=== PATIENT | female | born 1950 | race Caucasian/White ===

== ENCOUNTER 2017-12-08 18:23 | Emergency (ER) | payer OTHER ==
--- NOTE | 2017-12-08 19:26 | C.PDOC ---
History Of Present Illness 67 year old female presents to ED intoxicated looking for a place to stay. Patient reports she has been drinking today. Patient denies SI/HI, hallucinations, fever, CP, SOB. Time Seen by Provider: 12/08/17 19:15 Chief Complaint (Nursing): Substance Abuse History Per: Patient History/Exam Limitations: intoxication Onset/Duration Of Symptoms: Hrs Current Symptoms Are (Timing): Still Present Suicide/Self Injury Attempted (Context): None Modifying Factor(s): Alcohol Associated Symptoms: denies: Depression, Suicidal Thoughts, Suicidal Plan Recent travel outside of the [place] States: No Additional History Per: Patient Past Medical History Reviewed: Historical Data, Nursing Documentation, Vital Signs Vital Signs: Last Vital Signs Temp 98 F 12/09/17 01:53 Pulse 78 12/09/17 01:53 Resp 18 12/09/17 01:53 BP 128/84 12/09/17 01:53 Pulse Ox 98 12/09/17 01:53 - Medical History PMH: Anxiety, Depression, Diabetes, HTN Denies: Hepatitis, HIV, Seizures, Sexually Transmitted Disease Surgical History: No Surg Hx - [facility] Procedures PHYSICAL THERAPY NEC (04/01/14) Family History: States: Unknown Family Hx - Social History Hx Alcohol Use: Yes Hx Substance Use: No Review Of Systems Constitutional: Negative for: Fever, Chills Cardiovascular: Negative for: Chest Pain Respiratory: Negative for: Shortness of Breath Gastrointestinal: Negative for: Nausea, Vomiting Psych: Negative for: Depression, Suicidal ideation Physical Exam - Physical Exam Appears: Non-toxic, No Acute Distress Skin: Warm, Dry Head: Normacephalic Eye(s): bilateral: Normal Inspection Neck: Supple Chest: Symmetrical Cardiovascular: Rhythm Regular Respiratory: No Rales, No Rhonchi, No Wheezing Gastrointestinal/Abdominal: Soft, No Tenderness, No Guarding, No Rebound Back: Normal Inspection Extremity: Bilateral: Atraumatic, Normal Color And Temperature, Normal ROM Neurological/Psych: Oriented x3 Gait: Unsteady (due to alcohol intoxication) ED Course And Treatment O2 Sat by Pulse Oximetry: 98 (ON RA) Pulse Ox Interpretation: Normal Reevaluation Time: 05:18 Reassessment Condition: Improved Disposition Counseled Patient/Family Regarding: Studies Performed, Diagnosis - Disposition Referrals: [facility] [Outside] Disposition: HOME/ ROUTINE Disposition Time: 19:26 Condition: FAIR Instructions: Alcohol Abuse and Alcoholism (DC) Forms: [facility] ([place]) Print Language: IRISH - Clinical Impression Clinical Impression: Alcohol intoxication - Scribe Statement The provider has reviewed the documentation as recorded by the Scribe Neno Olivares All medical record entries made by the Scribe were at my direction and personally dictated by me. I have reviewed the chart and agree that the record accurately reflects my personal performance of the history, physical exam, medical decision making, and the department course for this patient. I have also personally directed, reviewed, and agree with the discharge instructions and disposition.
[2017-12-09 05:46] VITALS: BP 128/74; PULSE 74; RESP 20; TEMP 98.3; O2SAT 96
== END 2017-12-09 05:34 | disposition home or self-care (01) ==
LOC: C.ER 18:23 → EDBD 18:23 → C.ER 12-09 05:34
DX: F10.129 Alcohol abuse with intoxication, unspecified (principal); E11.9 Type 2 diabetes mellitus without complications

== ENCOUNTER 2017-12-27 09:50 | Inpatient (IN) | payer MEDICARE, OTHER ==
[2017-12-27 10:42] LABS: BASO # 0.1 K/uL (0.0-0.2); BASO % 0.8 % (0.0-2.0); EOS % 0.1 % (0.0-4.0); HEMOGLOBIN 12.3 g/dL (11.0-16.0); LYMPH # 1.3 K/uL (1.0-4.3); LYMPH % 18.9 % (20.0-40.0); MEAN CELL VOLUME 92.4 fL (81.0-99.0); MEAN CORPUSCULAR HEMOGLOBIN 31.5 pg (27.0-31.0); MEAN CORPUSCULAR HGB CONC 34.1 g/dL (33.0-37.0); MEAN PLATELET VOLUME 9.2 fL (7.2-11.7); MONO # 0.6 K/uL (0.0-0.8); MONO % 8.6 % (0.0-10.0); NEUT % 71.6 % (50.0-75.0); RBC 3.91 Mil/uL (3.80-5.20); RED CELL DISTRIBUTION WIDTH 13.9 % (11.5-14.5)
[2017-12-27] MEDS ORDERED: Sodium Chloride 0.9% 1,000 ML IV ONE (10:52)
[2017-12-27 10:54] LABS: ALB/GLOB RATIO 0.7 (1.0-2.1); ALBUMIN 3.7 g/dL (3.5-5.0); CALCIUM 8.2 mg/dl (8.6-10.4); GFR AFRICAN-AMERICAN > 60; GFR NON-AFRICAN AMERICAN > 60; LIPASE 251 U/L (23-300)
[2017-12-27 10:59] LABS: ALT/SGPT 104 U/L (9-52); AST/SGOT 299 U/L (14-36); BLOOD UREA NITROGEN 9 mg/dL (7-17)
--- NOTE | 2017-12-27 11:26 | RAD ---
PROCEDURE: CHEST RADIOGRAPH, 1 VIEW HISTORY: Abdominal pain COMPARISON: None available. FINDINGS: LUNGS: The lungs are well inflated and clear. PLEURA: No pneumothorax or pleural fluid seen. CARDIOVASCULAR: Normal. OSSEOUS STRUCTURES: No significant abnormalities. VISUALIZED UPPER ABDOMEN: Normal. OTHER FINDINGS: None. IMPRESSION: No active pulmonary disease.
[2017-12-27] MEDS ORDERED: Iodixanol 320 MG/ML 100 ML BOTTLE IV ONE (11:49)
--- NOTE | 2017-12-27 11:56 | C.PDOC ---
History Of Present Illness 67 year old female, whose PMHx includes asthma and surgical history include cholecystectomy, presents to the ED for evaluation of epigastric abdominal pain which began two days ago. Patient states her pain radiates towards her back and is associated with abdominal distention and nausea. Patient was evaluated in [place] ED yesterday, but states she did not undergo CT scan. Patient denies fever, chills, dysuria. Time Seen by Provider: 12/27/17 09:59 Chief Complaint (Nursing): Abdominal Pain History Per: Patient History/Exam Limitations: no limitations Onset/Duration Of Symptoms: Days (2) Current Symptoms Are (Timing): Still Present Location Of Pain/Discomfort: Diffuse Radiation Of Pain To:: Back Quality Of Discomfort: "Pain" Associated Symptoms: Nausea. denies: Fever, Chills, Urinary Symptoms Additional History Per: Patient Abnormal Vaginal Bleeding: No Past Medical History Reviewed: Historical Data, Nursing Documentation, Vital Signs Vital Signs: Last Vital Signs Temp 98.8 F 12/27/17 15:31 Pulse 79 12/27/17 16:32 Resp 18 12/27/17 16:32 BP 154/85 H 12/27/17 16:32 Pulse Ox 95 12/27/17 16:32 - Medical History PMH: Anxiety, Depression, Diabetes, HTN Denies: Hepatitis, HIV, Seizures, Sexually Transmitted Disease Surgical History: Cholecystectomy - [facility] Procedures PHYSICAL THERAPY NEC (04/01/14) Family History: States: Unknown Family Hx - Social History Hx Alcohol Use: Yes Hx Substance Use: No Review Of Systems Except As Marked, All Systems Reviewed And Found Negative. Constitutional: Negative for: Fever, Chills Gastrointestinal: Positive for: Nausea, Abdominal Pain Genitourinary: Negative for: Dysuria Physical Exam - Physical Exam Appears: Non-toxic, No Acute Distress Skin: Normal Color, Warm, Dry Head: Atraumatic, Normacephalic Eye(s): bilateral: Normal Inspection, PERRL, EOMI Oral Mucosa: Moist Neck: Supple Chest: Symmetrical, No Deformity, No Tenderness Cardiovascular: Rhythm Regular, No Friction Rub, No Murmur Respiratory: Normal Breath Sounds, No Rales, No Rhonchi, No Wheezing Gastrointestinal/Abdominal: Bowel Sounds (active), Soft, Tenderness (diffuse ), Distention, No Guarding, No Rebound Back: Normal Inspection, No CVA Tenderness Extremity: Normal ROM, Capillary Refill (less than 2 seconds ), No Swelling Neurological/Psych: Oriented x3, Normal Speech, Normal Cognition, Normal Motor Gait: Steady ED Course And Treatment - Laboratory Results Result Diagrams: 12/27/17 10:38 12/27/17 10:38 ECG: Interpreted By Al ECG Rhythm: Sinus Rhythm Interpretation Of ECG: (+) T wave abnormality to I, avl, avf, V4-V5. LBBB O2 Sat by Pulse Oximetry: 95 (on RA) Pulse Ox Interpretation: Normal - Radiology CXR: Interpreted by Me CXR Interpretation: Yes: No Acute Disease. No: Infiltrates - CT Scan/US CT abd/pelvis Other Rad Studies (CT/US): Read By Radiologist, Radiology Report Reviewed CT/US Interpretation: PROCEDURE: CT abdomen pelvis dated 12/27/2017. HISTORY: Mid abdominal pain, distension, r/o ascites. COMPARISON: No prior study available comparison. TECHNIQUE: Contiguous helical/ transaxial images of the abdomen and pelvis. Oral contrast was administered. No IV contrast given. Coronal and Sagittal reformats generated. This CT exam was performed using one or more of the following dose reduction techniques: Automated exposure control, adjustment of the mA and/or kV according to patient size, and/or use of iterative reconstruction technique. Contrast dose: 100 cc Visipaque 320. Radiation dose: Total exam DLP = 802.11 mGy-cm. FINDINGS: LOWER THORAX: Lung bases clear. No infiltrate effusion or basilar pneumothorax. Small hiatal hernia. Heart size is borderline/mildly enlarged. No significant pericardial effusion. LIVER: Liver exhibits normal size and attenuation pattern without mass collection or calcification. . No evidence of ascites. No enhancing masses or collections identified. No significant intrahepatic biliary ductal dilatation. Portal and splenic veins are opacified. GALLBLADDER AND BILE DUCTS : Cholecystectomy. PANCREAS: Pancreas is slightly atrophic and fatty replaced. No pancreatic mass collection or calcification. No significant pancreatic ductal dilatation. SPLEEN: Normal size and attenuation pattern without mass collection or calcification. ADRENALS: No adrenal lesions seen. KIDNEYS AND URETERS: Unremarkable. No stone or no obstructive hydronephrosis. . Calcifications seen at the origin of the right renal artery. BLADDER: Urinary bladder incompletely distended which may in part account for slight thick-walled appearance. Correlation with urinalysis to exclude cystitis. REPRODUCTIVE: Uterus and adnexal structures unremarkable. APPENDIX: Normal- appearing appendix best seen on axial image number [id number] and. BOWEL: Evaluation of the bowel is limited due the lack of oral contrast material. The stomach is incompletely distended which presumably in part accounts thick- walled appearance. Slight dilatation of the proximal horizontal segment duodenum just proximal to the IVC filter Remaining visualized loops small bowel exhibit normal contour caliber. No evidence small bowel obstruction. There are multiple colonic diverticula seen along sigmoid colon however no radiographic evidence diverticulitis. PERITONEUM: Unremarkable. No free air. No evidence of for loculated fluid collections . There is a tiny fat containing umbilical hernia. LYMPH NODES: Unremarkable. No enlarged lymph nodes. VASCULATURE: In situ IVC filter. No evidence of abdominal aortic or iliac artery aneurysms. BONES: Mild multilevel degenerative spondylosis of the thoracic and lumbar spine. . There is a mild dextroscoliosis of the mid thoracic spine. OTHER FINDINGS: None. IMPRESSION: Cholecystectomy. . No evidence of ascites. Minor localized dilatation proximal horizontal portion of the duodenum just proximal to a IVC filter. Scattered colonic diverticula without radiographic evidence of diverticulitis. Minor bladder wall thickening likely due to incomplete distention however correlation with urinalysis recommended to exclude possibility of a cystitis Medical Decision Making Medical Decision Making: Progress: Bloodwork, CXR, CT A/P, EKG ordered and reviewed. Morphine IVP, Protonix IVP, Zofran IVP, and IV Fluids administered. Patient was found to have an abnormal EKG and there is no prior. On re-exam, the patient continues to have nausea and vomiting. Abdomen is soft and non- tender. The case was discussed with dr. Shah who agrees to admit the patient for observation. 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 - Scribe Statement The provider has reviewed the documentation as recorded by the Scribe (Kasia Kim) All medical record entries made by the Scribe were at my direction and personally dictated by me. I have reviewed the chart and agree that the record accurately reflects my personal performance of the history, physical exam, medical decision making, and the department course for this patient. I have also personally directed, reviewed, and agree with the discharge instructions and disposition.
--- NOTE | 2017-12-27 12:59 | CT ---
PROCEDURE: CT abdomen pelvis dated 12/27/2017 HISTORY: Mid abdominal pain, distension, r/o ascites COMPARISON: No prior study available comparison. TECHNIQUE: Contiguous helical/ transaxial images of the abdomen and pelvis. Oral contrast was administered. No IV contrast given. Coronal and Sagittal reformats generated. This CT exam was performed using one or more of the following dose reduction techniques: Automated exposure control, adjustment of the mA and/or kV according to patient size, and/or use of iterative reconstruction technique. Contrast dose: 100 cc Visipaque 320 Radiation dose: Total exam DLP = 802.11 mGy-cm. FINDINGS: LOWER THORAX: Lung bases clear. No infiltrate effusion or basilar pneumothorax. Small hiatal hernia. Heart size is borderline/mildly enlarged. No significant pericardial effusion. LIVER: Liver exhibits normal size and attenuation pattern without mass collection or calcification. . No evidence of ascites. No enhancing masses or collections identified. No significant intrahepatic biliary ductal dilatation. Portal and splenic veins are opacified. GALLBLADDER AND BILE DUCTS: Cholecystectomy PANCREAS: Pancreas is slightly atrophic and fatty replaced. No pancreatic mass collection or calcification. No significant pancreatic ductal dilatation SPLEEN: Normal size and attenuation pattern without mass collection or calcification. ADRENALS: No adrenal lesions seen. KIDNEYS AND URETERS: Unremarkable. No stone or no obstructive hydronephrosis. . Calcifications seen at the origin of the right renal artery BLADDER: Urinary bladder incompletely distended which may in part account for slight thick-walled appearance. Correlation with urinalysis to exclude cystitis. REPRODUCTIVE: Uterus and adnexal structures unremarkable. APPENDIX: Normal-appearing appendix best seen on axial image number [id number] and BOWEL: Evaluation of the bowel is limited due the lack of oral contrast material. The stomach is incompletely distended which presumably in part accounts thick-walled appearance. Slight dilatation of the proximal horizontal segment duodenum just proximal to the IVC filter Remaining visualized loops small bowel exhibit normal contour caliber. No evidence small bowel obstruction. There are multiple colonic diverticula seen along sigmoid colon however no radiographic evidence diverticulitis. PERITONEUM: Unremarkable. No free air. No evidence of for loculated fluid collections . There is a tiny fat containing umbilical hernia. LYMPH NODES: Unremarkable. No enlarged lymph nodes. VASCULATURE: In situ IVC filter. No evidence of abdominal aortic or iliac artery aneurysms. BONES: Mild multilevel degenerative spondylosis of the thoracic and lumbar spine. . There is a mild dextroscoliosis of the mid thoracic spine OTHER FINDINGS: None. IMPRESSION: Cholecystectomy. . No evidence of ascites. Minor localized dilatation proximal horizontal portion of the duodenum just proximal to a IVC filter. Scattered colonic diverticula without radiographic evidence of diverticulitis. Minor bladder wall thickening likely due to incomplete distention however correlation with urinalysis recommended to exclude possibility of a cystitis
[2017-12-27 13:57] LABS: CK-MB 1.23 ng/mL (0.0-3.38)
[2017-12-27] MEDS ORDERED: Metoprolol 1 mg/ml Inj IVP STA (15:38)
[2017-12-27] MEDS ORDERED: Metoprolol 1 mg/ml Inj IVP ONE (16:29)
[2017-12-27] MEDS ORDERED: Aluminum Hydroxide/Magnesium Hydroxide Susp (30 mL) PO ONE (19:27)
[2017-12-27] MEDS: Pantoprazole 40 mg EC Tab PO SCH (20:22)
[2017-12-27 21:07] LABS: CK-MB 1.32 ng/mL (0.0-3.38)
[2017-12-27 21:10] LABS: TROPONIN I 0.041 ng/mL (0.00-0.120)
[2017-12-27] MEDS: (Novolog) Insulin Aspart, Recombinant 100 u/ml 10 ml vial SC SCH (22:21)
[2017-12-28 02:57] LABS: CK-MB 1.32 ng/mL (0.0-3.38); TROPONIN I 0.039 ng/mL (0.00-0.120)
[2017-12-28 03:09] LABS: BARBITURATES, UR NEGATIVE (NEGATIVE); BENZODIAZEPINES, UR NEGATIVE (NEGATIVE); OPIATES, UR NEGATIVE (NEGATIVE); PHENCYCLIDINE, UR NEGATIVE (NEGATIVE)
[2017-12-28] MEDS: (Novolog) Insulin Aspart, Recombinant 100 u/ml 10 ml vial SC SCH ×4 (07:37→22:10)
[2017-12-28] MEDS: Albuterol-Ipratrop 3 mg / 0.5 (3 ml) UD INH PRN (08:15)
[2017-12-28] MEDS: Enoxaparin 40 mg Syringe SC SCH (09:25)
[2017-12-28] MEDS: Pantoprazole 40 mg EC Tab PO SCH (09:27)
[2017-12-28] MEDS ORDERED: Pneumococcal 23-Valent Vaccine IM ONE (10:00)
[2017-12-28 11:49] LABS: CK-MB 1.12 ng/mL (0.0-3.38); TROPONIN I 0.015 ng/mL (0.00-0.120)
--- NOTE | 2017-12-28 19:23 | CARD ---
APPROVED REPORT EXAM: Two-dimensional and M-mode echocardiogram with Doppler and color Doppler. Other Information Quality : FairRhythm : NSR INDICATION LBBB,HIV RISK FACTORS Hypertension Diabetes M-Mode DIMENSIONS RVDd0.73 (2.1-3.2cm)Left Atrium (MM)3.61 (2.5-4.0cm) IVSd0.70 (0.7-1.1cm)Aortic Root2.89 (2.2-3.7cm) LVDd5.56 (4.0-5.6cm)Aortic Cusp Exc.1.52 (1.5-2.0cm) PWd0.88 (0.7-1.1cm)FS (%) 22 % LVDs4.31 (2.0-3.8cm)LVEF (%)45 (>50%) Mitral Valve MV E Ggaroorz14.2cm/sMV A Dkyziulx584.8cm/sE/A ratio0.7 TDI E/Lateral E'0.0E/Medial E'0.0 Tricuspid Valve TR Peak [id number]/sTR Peak [id number] LEFT VENTRICLE The left ventricle is normal size. There is normal left ventricular wall thickness. The Ejection Fraction is 50-55%. There is normal LV segmental wall motion. Transmitral Doppler flow pattern is Grade I-abnormal relaxation pattern. RIGHT VENTRICLE The right ventricle is normal size. The right ventricular systolic function is normal. ATRIA The left atrium size is normal. The right atrium size is normal. The interatrial septum is intact with no evidence for an atrial septal defect. AORTIC VALVE A bicuspid aortic valve cannot be excluded. The aortic valve is moderately sclerotic. There is trace aortic regurgitation. MITRAL VALVE The mitral valve is thickened but opens well. Mitral annular calcification is mild. There is no mitral valve regurgitation noted. TRICUSPID VALVE The tricuspid valve is normal in structure. The tricuspid valve is normal in structure. There is mild tricuspid regurgitation. Right ventricular systolic pressure is estimated at 34 mmHg. There is no pulmonary hypertension. GREAT VESSELS The aortic root is normal size. The aortic root displays mild sclerocalcific changes of the aortic root. The IVC is normal in size and collapses >50% with inspiration. PERICARDIAL EFFUSION There is no pericardial effusion. <Conclusion> The left ventricle is normal size. The Ejection Fraction is 50-55%. Transmitral Doppler flow pattern is Grade I-abnormal relaxation pattern. A bicuspid aortic valve cannot be excluded. The aortic valve is moderately sclerotic. The aortic root is normal size. The aortic root displays mild sclerocalcific changes of the aortic root. mild tr with upper normal pulmonary systolic pressures of 34 mm of hg.
--- NOTE | 2017-12-28 19:59 | CARD ---
APPROVED REPORT EKG Measurement Heart [id number] <Conclusion> Normal sinus rhythm Possible Left atrial enlargement Left bundle branch block Abnormal ECG
--- NOTE | 2017-12-29 00:34 | CP.PCM.HP ---
History of Present Illness - History of Present Illness History of Present Illness: History Of Present Illness 67 year old female, whose PMHx includes asthma and surgical history include cholecystectomy, presents to the ED for evaluation of epigastric abdominal pain which began two days ago. Patient states her pain radiates towards her back and is associated with abdominal distention and nausea. Patient was evaluated in [place] ED yesterday, but states she did not undergo CT scan. Patient denies fever, chills, dysuria. Present on Admission - Present on Admission Any Indicators Present on Admission: No Past Patient History - Past Medical History & Family History Past Medical History?: Yes - Past Social History Smoking Status: Former Smoker - CARDIAC Hx Cardiac Disorders: Yes Hx Hypertension: Yes - PULMONARY Hx Respiratory Disorders: No Hx Tuberculosis: No - NEUROLOGICAL Hx Neurological Disorder: No Hx Seizures: No - HEENT Hx HEENT Problems: No - RENAL Hx Chronic Kidney Disease: No - ENDOCRINE/METABOLIC Hx Endocrine Disorders: No - HEMATOLOGICAL/ONCOLOGICAL Hx Blood Disorders: No Hx Human Immunodeficiency Virus (HIV): No - INTEGUMENTARY Hx Dermatological Problems: No - MUSCULOSKELETAL/RHEUMATOLOGICAL Hx Falls: No - GASTROINTESTINAL Hx Gastrointestinal Disorders: No - GENITOURINARY/GYNECOLOGICAL Hx Genitourinary Disorders: No Hx Sexually Transmitted Disorders: No - PSYCHIATRIC Hx Substance Use: No - SURGICAL HISTORY Hx Surgeries: Yes Hx Cholecystectomy: Yes - ANESTHESIA Hx Anesthesia: No Hx Anesthesia Reactions: No Meds Allergies/Adverse Reactions: Allergies Allergy/AdvReac Type Severity Reaction Status Date / Time No Known Allergies Allergy Verified 12/08/17 18:30 Results - Vital Signs Recent Vital Signs: Last Vital Signs Temp 98.2 F 12/28/17 15:13 Pulse 71 12/28/17 15:13 Resp 20 12/28/17 15:13 BP 126/61 12/28/17 17:38 Pulse Ox 96 12/28/17 15:13 - Labs Result Diagrams: 12/30/17 06:32 12/30/17 06:32 Labs: Laboratory Results - last 24 hr 12/28/17 12/28/17 12/28/17 02:28 02:50 07:01 POC Glucose (mg/dL) 150 H Total Creatine Kinase 116 CK-MB (Mass) 1.32 Troponin I 0.0390 Urine Opiates Screen Negative Urine Methadone Screen Negative Ur Barbiturates Screen Negative Ur Phencyclidine Scrn Negative Ur Amphetamines Screen Negative U Benzodiazepines Scrn Negative U Oth Cocaine Metabols Negative U Cannabinoids Screen Negative 12/28/17 12/28/17 12/28/17 11:17 11:55 16:14 POC Glucose (mg/dL) 145 H 120 H Total Creatine Kinase 92 CK-MB (Mass) 1.12 Troponin I 0.0150 Urine Opiates Screen Urine Methadone Screen Ur Barbiturates Screen Ur Phencyclidine Scrn Ur Amphetamines Screen U Benzodiazepines Scrn U Oth Cocaine Metabols U Cannabinoids Screen 12/28/17 21:53 POC Glucose (mg/dL) 114 H Total Creatine Kinase CK-MB (Mass) Troponin I Urine Opiates Screen Urine Methadone Screen Ur Barbiturates Screen Ur Phencyclidine Scrn Ur Amphetamines Screen U Benzodiazepines Scrn U Oth Cocaine Metabols U Cannabinoids Screen
--- NOTE | 2017-12-29 00:36 | CP.PCM.PN ---
Subjective - Date & Time of Evaluation Date of Evaluation: 12/28/17 Time of Evaluation: 18:00 - Subjective Subjective: PT SEEN AND EXAMINED AT BEDSIDE. Objective - Vital Signs/Intake and Output Vital Signs (last 24 hours): Temp Pulse Resp BP Pulse Ox 98.2 F 71 20 126/61 96 12/28/17 15:13 12/28/17 15:13 12/28/17 15:13 12/28/17 17:38 12/28/17 15:13 Intake and Output: 12/28/17 12/29/17 18:59 06:59 Intake Total 600 145 Balance 600 145 - Medications Medications: Current Medications Acetaminophen (Tylenol 325mg Tab) 650 mg PO Q6 PRN PRN Reason: Headache Last Admin: 12/28/17 17:05 Dose: 650 mg Albuterol/Ipratropium (Duoneb 3 Mg/0.5 Mg (3 Ml) Ud) 3 ml INH RQ2 PRN PRN Reason: Shortness of Breath Last Admin: 12/28/17 08:15 Dose: 3 ml Alprazolam (Xanax) 1 mg PO BID [facility] Last Admin: 12/28/17 17:38 Dose: 1 mg Carvedilol (Coreg) 3.125 mg PO BID [facility] Last Admin: 12/28/17 17:38 Dose: 3.125 mg Enalapril Maleate (Vasotec) 2.5 mg PO DAILY [facility] Last Admin: 12/28/17 14:43 Dose: 2.5 mg Enoxaparin Sodium (Lovenox) 40 mg SC DAILY [facility] Last Admin: 12/28/17 09:25 Dose: 40 mg Insulin Aspart (Novolog) 0 unit SC [facility] PRN Reason: Protocol Last Admin: 12/28/17 22:10 Dose: Not Given Metformin HCl (Glucophage) 500 mg PO BID [facility] Last Admin: 12/28/17 17:38 Dose: 500 mg Metoprolol Tartrate (Lopressor) 25 mg PO BID [facility] Last Admin: 12/28/17 17:38 Dose: 25 mg Pantoprazole Sodium (Protonix Ec Tab) 40 mg PO DAILY [facility] Last Admin: 12/28/17 09:27 Dose: 40 mg Rosuvastatin Calcium (Crestor) 10 mg PO HS [facility] Last Admin: 12/28/17 21:35 Dose: 10 mg Spironolactone (Aldactone) 12.5 mg PO BID [facility] Last Admin: 12/28/17 17:38 Dose: 12.5 mg Thiamine HCl (Vitamin B1 Tab) 100 mg PO DAILY [facility] Last Admin: 12/28/17 14:43 Dose: 100 mg Zolpidem Tartrate (Ambien) 5 mg PO HS PRN PRN Reason: Insomnia - Labs Labs: 12/27/17 10:38 12/27/17 10:38
--- NOTE | 2017-12-29 01:06 | CON ---
DATE: 12/28/2017 REASON FOR CONSULTATION: New-onset left bundle branch block. HISTORY OF PRESENT ILLNESS: The patient is a 67 years old female who is a smoker, had a history of ETOH abuse and a history of hepatitis most likely related to her alcohol abuse according to the patient. She presented because of abdominal pain and EKG revealed sinus rhythm at 89 beats per minute with left bundle branch block. The most recent EKG prior to that was in 09/2016, which revealed normal sinus rhythm at the rate of 69 with LVH by voltage. The patient denied any chest pain or shortness of breath at this time. The patient denies any history of hematemesis or melena. The patient was admitted last year with alcohol intoxication. The patient denies any intravenous drug abuse. SOCIAL HISTORY: The patient is a smoker, alcohol drinker and she lives with her daughter. MEDICATIONS: Crestor 10 mg once a day, albuterol inhaler every 2 hours, metformin 500 mg twice day, Lopressor 25 mg twice a day, Lovenox 40 mg subcutaneously once a day, Xanax 1 mg p.o. twice a day, Protonix 40 mg p.o. once a day. PAST MEDICAL HISTORY: Alcoholic liver disease, hypertension, diabetes mellitus, history of DVT, pulmonary embolism with IVC filter placement. REVIEW OF SYSTEMS: No hematemesis or melena. No fever or chills. No retrosternal chest pain. PHYSICAL EXAMINATION GENERAL: The patient is an elderly female who does not appear to be in acute distress. VITAL SIGNS: Blood pressure 148/84, heart rate 81, temperature 97.9, respirations 18, HEENT: Normocephalic. NECK: No JVD. CHEST : Minimal right basal crepitations. HEART: S1 and S2 regular. ABDOMEN: Soft. EXTREMITIES: Trace leg edema with significant chronic skin changes. LABORATORY DATA: Urine drug screen is negative. SMA-7; sodium 143, potassium 4.1, chloride 106, CO2 26, glucose 139, BUN 9, creatinine 0.5. Three sets of troponins are negative. Lipase is within normal limits. Hemoglobin and hematocrit 12.3 and 36.2, white count and platelet count are within normal limits. Abdomen and pelvic CT scan, cholecystectomy, no evidence for ascites, minimal localized dilatation proximal horizontal portion of the duodenum just proximal to IVC filter. Scattered chronic diverticuli without evidence of diverticulitis. I did review the echocardiographic study performed today and was consistent with cardiomyopathy. ASSESSMENT: 1. New-onset left bundle branch block compared to an EKG from 09/2016. 2. Cardiomyopathy. 3. Ethyl alcohol abuse. 4. Hypertension and diabetes mellitus. 5. History of deep venous thrombosis and pulmonary embolism in the past. RECOMMENDATIONS: Continue Crestor at 10 mg once a day, metformin 500 mg twice a day. Obtain PT and PTT and if within normal limits, increase Lovenox to a therapeutic regimen. Start Coreg at 3.125 mg twice a day, Enalapril 25 mg once a day, Aldactone 12.5 mg once a day, thiamine 100 mg once a day. Cardiac catheterization is recommendation and will be discussed with the family as well as the primary physician. Hipolito Manuel MD
[2017-12-29] MEDS: Albuterol-Ipratrop 3 mg / 0.5 (3 ml) UD INH PRN (07:35)
[2017-12-29] MEDS: (Novolog) Insulin Aspart, Recombinant 100 u/ml 10 ml vial SC SCH ×4 (07:50→22:39)
[2017-12-29 08:37] LABS: INR 1.2; PROTHROMBIN TIME 12.9 SECONDS (9.7-12.2)
[2017-12-29 08:38] LABS: BASO % 0.6 % (0.0-2.0); EOS # 0.1 K/uL (0.0-0.7); EOS % 1.4 % (0.0-4.0); HEMOGLOBIN 12.2 g/dL (11.0-16.0); LYMPH # 1.8 K/uL (1.0-4.3); LYMPH % 35.4 % (20.0-40.0); MEAN CELL VOLUME 91.7 fL (81.0-99.0); MEAN CORPUSCULAR HEMOGLOBIN 30.8 pg (27.0-31.0); MEAN CORPUSCULAR HGB CONC 33.6 g/dL (33.0-37.0); MEAN PLATELET VOLUME 9.4 fL (7.2-11.7); MONO # 0.4 K/uL (0.0-0.8); MONO % 7.8 % (0.0-10.0); NEUT # 2.9 K/uL (1.8-7.0); NEUT % 54.8 % (50.0-75.0); NRBC % 0.1 % (0.0-2.0); RBC 3.97 Mil/uL (3.80-5.20); RED CELL DISTRIBUTION WIDTH 13.8 % (11.5-14.5); WHITE BLOOD COUNT 5.2 K/uL (4.8-10.8)
[2017-12-29 08:47] LABS: ALB/GLOB RATIO 0.8 (1.0-2.1); ALBUMIN 3.3 g/dL (3.5-5.0); ALT/SGPT 88 U/L (9-52); AST/SGOT 141 U/L (14-36); BLOOD UREA NITROGEN 16 mg/dL (7-17); CALCIUM 8.4 mg/dl (8.6-10.4); GFR AFRICAN-AMERICAN > 60; GFR NON-AFRICAN AMERICAN > 60
[2017-12-29] MEDS: Pantoprazole 40 mg EC Tab PO SCH (09:50)
[2017-12-29] MEDS: Enoxaparin 40 mg Syringe SC SCH (09:52)
--- NOTE | 2017-12-29 17:26 | PN ---
DATE: 12/29/2017 SUBJECTIVE: The patient complains of what she describes as liver pain. She is nauseated, but denies any vomiting denies chest pain or shortness of breath. PHYSICAL EXAMINATION: VITAL SIGNS: Blood pressure 128/74, heart rate 76, temperature 97.7, respirations 20. HEENT: Normocephalic. CHEST: Clear. HEART: S1 and S2 regular. EXTREMITIES: 1+ pitting edema. LABORATORY DATA: Today's INR is 1.2 and PTT 33. Today's SMA-7 is within normal limits except for creatinine of 0.6. Calcium is normal at 8.4. AST and ALT are 141 and 88 respectively. Alkaline phosphatase is 149. Official echocardiographic study report stated ejection fraction in the range of 50 to 55, bicuspid aortic valve could not be excluded, and mild pulmonary hypertension. ASSESSMENT: 1. New onset left bundle branch block. 2. Alcoholic liver disease. 3. Diabetes mellitus and hypertension. RECOMMENDATIONS: Continue Coreg at 3.125 mg twice a day, Crestor 2 mg once a day, and change Lovenox to 40 mg subcutaneously once a day. Continue enalapril 2.5 mg once a day, thiamine 100 mg once a day. Cardiac catheterization was discussed with the patient and she will think about it and will be scheduled with Dr. Cole Shah, the primary physician. Hipolito Manuel MD
[2017-12-29] MEDS ORDERED: Enoxaparin 40 mg Syringe SC SCH (18:00)
[2017-12-30 06:43] LABS: BASO % 0.6 % (0.0-2.0); EOS # 0.1 K/uL (0.0-0.7); EOS % 1.9 % (0.0-4.0); HEMOGLOBIN 11.5 g/dL (11.0-16.0); LYMPH # 1.6 K/uL (1.0-4.3); LYMPH % 29.5 % (20.0-40.0); MEAN CELL VOLUME 92.1 fL (81.0-99.0); MEAN CORPUSCULAR HEMOGLOBIN 31.2 pg (27.0-31.0); MEAN CORPUSCULAR HGB CONC 33.9 g/dL (33.0-37.0); MEAN PLATELET VOLUME 9.7 fL (7.2-11.7); MONO # 0.5 K/uL (0.0-0.8); MONO % 8.7 % (0.0-10.0); NEUT # 3.2 K/uL (1.8-7.0); NEUT % 59.3 % (50.0-75.0); NRBC % 0.1 % (0.0-2.0); RBC 3.67 Mil/uL (3.80-5.20); RED CELL DISTRIBUTION WIDTH 13.7 % (11.5-14.5); WHITE BLOOD COUNT 5.3 K/uL (4.8-10.8)
[2017-12-30 07:02] LABS: ALB/GLOB RATIO 0.7 (1.0-2.1); ALT/SGPT 67 U/L (9-52); AST/SGOT 100 U/L (14-36); BLOOD UREA NITROGEN 12 mg/dL (7-17); CALCIUM 8.5 mg/dl (8.6-10.4); GFR AFRICAN-AMERICAN > 60; GFR NON-AFRICAN AMERICAN > 60
[2017-12-30] MEDS: (Novolog) Insulin Aspart, Recombinant 100 u/ml 10 ml vial SC SCH ×4 (09:15→21:28)
[2017-12-30] MEDS: Pantoprazole 40 mg EC Tab PO SCH (09:21)
[2017-12-30] MEDS: Enoxaparin 40 mg Syringe SC SCH (09:22)
--- NOTE | 2017-12-31 00:28 | CP.PCM.PN ---
Subjective - Date & Time of Evaluation Date of Evaluation: 12/30/17 Time of Evaluation: 19:00 - Subjective Subjective: Pt seen and evaluated at bedside Objective - Vital Signs/Intake and Output Vital Signs (last 24 hours): Temp Pulse Resp BP Pulse Ox 98.1 F 76 20 117/70 96 12/30/17 15:11 12/30/17 15:11 12/30/17 15:11 12/30/17 15:11 12/30/17 15:11 Intake and Output: 12/30/17 12/31/17 18:59 06:59 Intake Total 400 Balance 400 - Medications Medications: Current Medications Acetaminophen (Tylenol 325mg Tab) 650 mg PO Q6 PRN PRN Reason: Headache Last Admin: 12/30/17 22:24 Dose: 650 mg Albuterol/Ipratropium (Duoneb 3 Mg/0.5 Mg (3 Ml) Ud) 3 ml INH RQ2 PRN PRN Reason: Shortness of Breath Last Admin: 12/29/17 07:35 Dose: 3 ml Alprazolam (Xanax) 1 mg PO BID [facility] Last Admin: 12/30/17 17:31 Dose: 1 mg Carvedilol (Coreg) 3.125 mg PO BID [facility] Last Admin: 12/30/17 17:31 Dose: 3.125 mg Enalapril Maleate (Vasotec) 2.5 mg PO DAILY [facility] Last Admin: 12/30/17 09:21 Dose: 2.5 mg Enoxaparin Sodium (Lovenox) 40 mg SC DAILY [facility] Last Admin: 12/30/17 09:22 Dose: 40 mg Insulin Aspart (Novolog) 0 unit SC [facility] PRN Reason: Protocol Last Admin: 12/30/17 21:28 Dose: Not Given Metformin HCl (Glucophage) 500 mg PO BID [facility] Last Admin: 12/30/17 17:31 Dose: 500 mg Pantoprazole Sodium (Protonix Ec Tab) 40 mg PO DAILY [facility] Last Admin: 12/30/17 09:21 Dose: 40 mg Rosuvastatin Calcium (Crestor) 10 mg PO HS [facility] Last Admin: 12/30/17 21:25 Dose: 10 mg Spironolactone (Aldactone) 12.5 mg PO BID [facility] Last Admin: 12/30/17 17:31 Dose: 12.5 mg Thiamine HCl (Vitamin B1 Tab) 100 mg PO DAILY [facility] Last Admin: 12/30/17 09:21 Dose: 100 mg Zolpidem Tartrate (Ambien) 5 mg PO HS PRN PRN Reason: Insomnia Last Admin: 12/29/17 01:09 Dose: 5 mg - Labs Labs: 12/30/17 06:32 12/30/17 06:32 PT 12.9 SECONDS (9.7-12.2) H 12/29/17 08:24 INR 1.2 12/29/17 08:24 APTT 33 SECONDS (21-34) 12/29/17 08:24
[2017-12-31] MEDS: (Novolog) Insulin Aspart, Recombinant 100 u/ml 10 ml vial SC SCH ×4 (07:57→21:28)
--- NOTE | 2017-12-31 09:36 | PN ---
DATE: 12/30/2017 SUBJECTIVE: The patient is experiencing left subcostal pain, which she describes as liver pain. She denies any nausea or vomiting. No retrosternal chest pain. PHYSICAL EXAMINATION: VITAL SIGNS: Blood pressure 111/65, heart rate 66, temperature 97.4, respirations 20. HEENT: Normocephalic. CHEST: Clear. HEART: S1 and S2, regular. ABDOMEN: Soft. EXTREMITIES: 1+ pitting edema.. LABORATORY DATA: Today's SMA-7 is within normal limit except glucose 122 and creatinine 0.6. AST and ALT are 100 and 67 respectively. Alkaline phosphatase 131. The three liver enzymes are elevated. Hemoglobin and hematocrit 11.5 and 33.8, white count 5.3, platelet count 126,000, which is improved compared to yesterday. ASSESSMENT: 1. Cardiomyopathy. 2. New right bundle branch block. 3. Alcoholic liver disease. RECOMMENDATIONS: Continue Aldactone 12.5 mg twice a day, Coreg 3.125 mg twice a day, Crestor 10 mg once a day, Lovenox 40 mg once a day, Vasotec 2.5 mg once a day, thiamine 100 mg once a day. Case was discussed with Dr. Cole Shah, the primary physician, and cardiac catheterization was recommended once the patient is cleared from the medical point of view. Hipolito Manuel MD
[2017-12-31] MEDS: Enoxaparin 40 mg Syringe SC SCH (10:48)
[2017-12-31] MEDS: Pantoprazole 40 mg EC Tab PO SCH (10:49)
--- NOTE | 2017-12-31 12:10 | PN ---
DATE: 12/29/2017 SUBJECTIVE: The patient was seen and examined at the bedside on 12/29/2017. Looking comfortable. No fever, no chills. No headaches, no dizziness. No shortness of breath but complaining of a little bit nauseousness but no vomiting, no diarrhea. No hematuria or hematochezia. PHYSICAL EXAMINATION: VITAL SIGNS: Temperature 98.6, blood pressure 120/74, heart rate 76, respiratory rate 18. HEENT: Normocephalic and atraumatic. Eyes PERRLA. Extraocular muscles intact. Conjunctivae clear. Nose patent. Mucus membranes moist. NECK: Supple. No carotid bruits. No JVD. No thyromegaly. CHEST: Bilaterally symmetrical. HEART: S1 and S2 positive. LUNGS: Clear to auscultation. ABDOMEN: Soft. Bowel sounds positive. No organomegaly. EXTREMITIES: Positive edema, +1. No cyanosis. NEUROLOGIC: The patient is awake, alert, moving all four extremities. No focal deficit. MEDICATIONS: Aldactone, Ambien, Coreg, Crestor, DuoNeb, Glucophage, Lovenox, NovoLog, Protonix, Tylenol, Xanax. LABS: White blood cells 5.2, hemoglobin 12.2, hematocrit 36.4, platelets 117. ASSESSMENT: Mrs. Hossein Gallegos is a 67 year old lady with hyperglycemia, hypocalcemia, abnormal liver function tests. Had CAT scan of abdomen and pelvis done, reviewed by me. Has a new onset left bundle branch block as per Dr. Manuel. Alcoholic liver disease, hypertension. PLAN: Continue Coreg, Crestor for hypercholesterolemia, Lovenox for DVT prophylaxis, enalapril for hypertension, and thiamine. According to Dr. Manuel, the patient needs cardiac catheterization. Discussion done with the patient. The patient is still taking GI prophylaxis with labs. We will follow up. Bhavani Ross MD
--- NOTE | 2017-12-31 23:26 | PN ---
DATE: 12/31/2017 SUBJECTIVE: The patient still complains of left subcostal pain. She denies any chest pain. PHYSICAL EXAMINATION: VITAL SIGNS: Blood pressure 113/73, heart rate ____ , respirations 20. HEENT: Head normocephalic. CHEST: Clear. HEART: Heart sounds regular. ABDOMEN: Soft. EXTREMITIES: No edema. ASSESSMENT: 1. New onset left bundle branch block, rule out underlying coronary artery disease. 2. Alcoholic liver disease. 3. Depressed ejection fraction as per my own review of the echo study. RECOMMENDATIONS: Continue Aldactone 12.5 mg twice a day, Coreg 3.125 mg twice a day, Crestor 10 mg once a day, Lovenox 40 mg subcutaneously once a day, thiamine 100 mg once a day, Vasotec 2.5 mg once a day. The patient was cleared by Dr. Shah for cardiac catheterization and is scheduled for tomorrow at 3 p.m. The patient will be kept n.p.o. after a liquid breakfast. Hipolito Manuel MD
[2018-01-01] MEDS: (Novolog) Insulin Aspart, Recombinant 100 u/ml 10 ml vial SC SCH ×4 (07:13→21:53)
[2018-01-01 07:40] LABS: BASO % 0.8 % (0.0-2.0); EOS # 0.2 K/uL (0.0-0.7); EOS % 2.5 % (0.0-4.0); LYMPH # 1.8 K/uL (1.0-4.3); LYMPH % 29.9 % (20.0-40.0); MEAN CELL VOLUME 93.7 fL (81.0-99.0); MEAN CORPUSCULAR HEMOGLOBIN 31.7 pg (27.0-31.0); MEAN CORPUSCULAR HGB CONC 33.9 g/dL (33.0-37.0); MEAN PLATELET VOLUME 9.5 fL (7.2-11.7); MONO # 0.5 K/uL (0.0-0.8); MONO % 8.8 % (0.0-10.0); NEUT # 3.6 K/uL (1.8-7.0); NRBC % 0.1 % (0.0-2.0); RBC 3.78 Mil/uL (3.80-5.20); RED CELL DISTRIBUTION WIDTH 14.1 % (11.5-14.5); WHITE BLOOD COUNT 6.2 K/uL (4.8-10.8)
--- NOTE | 2018-01-01 07:52 | CP.PCM.PN ---
Subjective - Date & Time of Evaluation Date of Evaluation: 12/31/17 Time of Evaluation: 19:00 - Subjective Subjective: Pt seen and examined by me Objective - Vital Signs/Intake and Output Vital Signs (last 24 hours): Temp Pulse Resp BP Pulse Ox 97.3 F L 79 20 114/62 95 12/31/17 23:10 01/01/18 01:00 12/31/17 23:10 12/31/17 23:10 12/31/17 23:10 Intake and Output: 01/01/18 01/01/18 06:59 18:59 Intake Total 450 Balance 450 - Medications Medications: Current Medications Acetaminophen (Tylenol 325mg Tab) 650 mg PO Q6 PRN PRN Reason: Headache Last Admin: 12/30/17 22:24 Dose: 650 mg Albuterol/Ipratropium (Duoneb 3 Mg/0.5 Mg (3 Ml) Ud) 3 ml INH RQ2 PRN PRN Reason: Shortness of Breath Last Admin: 12/29/17 07:35 Dose: 3 ml Alprazolam (Xanax) 1 mg PO BID [facility] Last Admin: 12/31/17 18:22 Dose: 1 mg Carvedilol (Coreg) 3.125 mg PO BID [facility] Last Admin: 12/31/17 18:21 Dose: 3.125 mg Enalapril Maleate (Vasotec) 2.5 mg PO DAILY [facility] Last Admin: 12/31/17 10:48 Dose: 2.5 mg Enoxaparin Sodium (Lovenox) 40 mg SC DAILY [facility] Last Admin: 12/31/17 10:48 Dose: 40 mg Insulin Aspart (Novolog) 0 unit SC [facility] PRN Reason: Protocol Last Admin: 01/01/18 07:13 Dose: Not Given Metformin HCl (Glucophage) 500 mg PO BID [facility] Last Admin: 12/31/17 10:48 Dose: 500 mg Pantoprazole Sodium (Protonix Ec Tab) 40 mg PO DAILY [facility] Last Admin: 12/31/17 10:49 Dose: 40 mg Rosuvastatin Calcium (Crestor) 10 mg PO HS [facility] Last Admin: 12/31/17 21:27 Dose: 10 mg Spironolactone (Aldactone) 12.5 mg PO BID [facility] Last Admin: 12/31/17 18:21 Dose: 12.5 mg Thiamine HCl (Vitamin B1 Tab) 100 mg PO DAILY [facility] Last Admin: 12/31/17 10:48 Dose: 100 mg Zolpidem Tartrate (Ambien) 5 mg PO HS PRN PRN Reason: Insomnia Last Admin: 12/29/17 01:09 Dose: 5 mg - Labs Labs: 01/01/18 07:23 12/30/17 06:32 PT 12.9 SECONDS (9.7-12.2) H 12/29/17 08:24 INR 1.2 12/29/17 08:24 APTT 33 SECONDS (21-34) 12/29/17 08:24
[2018-01-01 08:14] LABS: ALB/GLOB RATIO 0.8 (1.0-2.1); ALBUMIN 3.5 g/dL (3.5-5.0); ALT/SGPT 56 U/L (9-52); AST/SGOT 88 U/L (14-36); BILIRUBIN,DIRECT 0.6 mg/dL (0.0-0.4); BLOOD UREA NITROGEN 18 mg/dL (7-17); CALCIUM 9.2 mg/dl (8.6-10.4); GFR AFRICAN-AMERICAN > 60; GFR NON-AFRICAN AMERICAN > 60
[2018-01-01] MEDS: Pantoprazole 40 mg EC Tab PO SCH (09:31)
[2018-01-01] MEDS ORDERED: Iohexol 350mg/ml 100 ML ONE (15:46)
--- NOTE | 2018-01-01 23:52 | CP.PCM.PN ---
Subjective - Date & Time of Evaluation Date of Evaluation: 01/01/18 Time of Evaluation: 19:00 - Subjective Subjective: patient seen and examined \ Objective - Vital Signs/Intake and Output Vital Signs (last 24 hours): Temp Pulse Resp BP Pulse Ox 97.9 F 70 18 127/84 95 01/01/18 17:44 01/01/18 17:44 01/01/18 17:44 01/01/18 17:44 01/01/18 17:44 Intake and Output: 01/01/18 01/02/18 18:59 06:59 Intake Total 20 Balance 20 - Medications Medications: Current Medications Acetaminophen (Tylenol 325mg Tab) 650 mg PO Q6 PRN PRN Reason: Headache Last Admin: 01/01/18 19:26 Dose: 650 mg Alprazolam (Xanax) 1 mg PO BID [facility] Last Admin: 01/01/18 18:05 Dose: 1 mg Carvedilol (Coreg) 3.125 mg PO BID [facility] Last Admin: 01/01/18 18:05 Dose: 3.125 mg Enalapril Maleate (Vasotec) 2.5 mg PO DAILY [facility] Last Admin: 01/01/18 09:31 Dose: 2.5 mg Enoxaparin Sodium (Lovenox) 40 mg SC DAILY [facility] Last Admin: 12/31/17 10:48 Dose: 40 mg Insulin Aspart (Novolog) 0 unit SC [facility] PRN Reason: Protocol Last Admin: 01/01/18 21:53 Dose: Not Given Metformin HCl (Glucophage) 500 mg PO BID [facility] Last Admin: 12/31/17 10:48 Dose: 500 mg Pantoprazole Sodium (Protonix Ec Tab) 40 mg PO DAILY [facility] Last Admin: 01/01/18 09:31 Dose: 40 mg Rosuvastatin Calcium (Crestor) 10 mg PO HS [facility] Last Admin: 01/01/18 21:54 Dose: 10 mg Spironolactone (Aldactone) 12.5 mg PO BID [facility] Last Admin: 01/01/18 18:05 Dose: 12.5 mg Thiamine HCl (Vitamin B1 Tab) 100 mg PO DAILY [facility] Last Admin: 01/01/18 09:31 Dose: 100 mg Zolpidem Tartrate (Ambien) 5 mg PO HS PRN PRN Reason: Insomnia Last Admin: 06/17/18 01:09 Dose: 5 mg - Labs Labs: 01/01/18 07:23 01/01/18 07:23 PT 12.9 SECONDS (9.7-12.2) H 12/29/17 08:24 INR 1.2 12/29/17 08:24 APTT 33 SECONDS (21-34) 12/29/17 08:24
--- NOTE | 2018-01-02 06:35 | CARDCATH ---
PROCEDURE DATE: 01/01/2018 PROCEDURE: Left heart catheterization. PERFORMING PHYSICIAN: Hipolito Manuel MD INDICATIONS: The patient is a 67-year-old female who has a history of hypertension, history of EtOH abuse, presented because of abdominal pain and was found to have new left bundle-branch block. Echocardiographic study was reviewed initially, and it revealed depressed ejection fraction, however, the official report stated that normal left ventricular systolic function. Cardiac catheterization was recommended in view of new onset of left bundle branch block. The procedure and its risks were explained to the patient who understood and agreed for the procedure. DESCRIPTION OF PROCEDURE: After local infiltration with 1% lidocaine, a 6-Zimbabwean sheath was placed in the right femoral artery. Left and right coronary angiography were performed with 6-[place]imbabwean JL4 and JR4 diagnostic catheters. Left ventriculogram was performed with a 6-[place]imbabwean pigtail catheter. The patient tolerated the procedure well without any complications. ANGIOGRAPHIC FINDINGS: Selective injection of the left coronary artery revealed left main to be a normal vessel. Left main bifurcated into medium-sized LAD and medium-sized circumflex artery. The entire left coronary circulation was angiographically unremarkable. Selective injection of the right coronary artery revealed a medium sized dominant vessel, this was angiographically unremarkable. Left ventriculogram performed in the FERNANDEZ projection revealed mild inferobasal hypokinesis. Normal ejection fraction which was estimated at 65%. CONCLUSION: Unremarkable coronary artery circulation and normal ejection fraction; however, with mild inferobasal hypokinesis. RECOMMENDATIONS: Continue medical management. The patient was advised to abstain from both alcohol and smoking. Hipolito Manuel MD
[2018-01-02] MEDS: (Novolog) Insulin Aspart, Recombinant 100 u/ml 10 ml vial SC SCH ×4 (07:52→22:37)
[2018-01-02] MEDS: Pantoprazole 40 mg EC Tab PO SCH (10:03)
--- NOTE | 2018-01-02 21:36 | PN ---
DATE: 01/02/2018 SUBJECTIVE: The patient has no groin pain and no reported bleeding. She is still experiencing left subcostal pain. PHYSICAL EXAMINATION: VITAL SIGNS: Blood pressure 134/71, heart rate 80, temperature 97.7, respirations 20. HEENT: Normocephalic. CHEST: Clear. HEART: S1 and S2, regular. EXTREMITIES: No edema. No groin hematoma. ASSESSMENT: 1. New onset left bundle branch block. The patient has unremarkable coronary circulation. 2. Alcoholic liver disease. 3. Diabetes mellitus. 4. Hypertension. RECOMMENDATIONS: Continue Aldactone 12.5 mg once a day, Coreg 3.125 mg twice a day. Discontinue subcutaneus Lovenox. Continue thiamine 100 mg once a day and Vasotec 2.5 mg once a day. Discontinue telemetry. Hipolito Manuel MD
[2018-01-03] MEDS: Pantoprazole 40 mg EC Tab PO SCH ×2 (06:28→09:58)
[2018-01-03] MEDS: (Novolog) Insulin Aspart, Recombinant 100 u/ml 10 ml vial SC SCH ×3 (07:37→21:06)
[2018-01-03 08:05] LABS: SQUAMOUS EPITHIAL < 1 /hpf (0-5); URINE BACTERIA RARE (<OCC); URINE BILIRUBIN NEGATIVE (NEGATIVE); URINE BLOOD NEGATIVE (NEGATIVE); URINE CLARITY Clear (Clear); URINE COLOR Yellow (YELLOW); URINE GLUCOSE (UA) NORMAL (Normal); URINE LEUKOCYTE ESTERASE NEG Leu/uL (Negative); URINE PROTEIN NEGATIVE (NEGATIVE)
--- NOTE | 2018-01-03 10:45 | CP.PCM.PN ---
Subjective - Date & Time of Evaluation Date of Evaluation: 01/02/18 Time of Evaluation: 18:55 - Subjective Subjective: The patient seen and examined Objective - Vital Signs/Intake and Output Vital Signs (last 24 hours): Temp Pulse Resp BP Pulse Ox 98.5 F 63 20 102/69 98 01/03/18 08:35 01/03/18 08:35 01/03/18 08:35 01/03/18 08:35 01/03/18 08:35 Intake and Output: 01/03/18 01/03/18 06:59 18:59 Intake Total 320 Balance 320 - Medications Medications: Current Medications Acetaminophen (Tylenol 325mg Tab) 650 mg PO Q6 PRN PRN Reason: Headache Last Admin: 01/03/18 04:42 Dose: 650 mg Alprazolam (Xanax) 1 mg PO BID [facility] Last Admin: 01/03/18 10:00 Dose: Not Given Carvedilol (Coreg) 3.125 mg PO BID [facility] Last Admin: 01/03/18 09:58 Dose: Not Given Enalapril Maleate (Vasotec) 2.5 mg PO DAILY [facility] Last Admin: 01/03/18 10:00 Dose: Not Given Enoxaparin Sodium (Lovenox) 40 mg SC DAILY [facility] Last Admin: 12/31/17 10:48 Dose: 40 mg Insulin Aspart (Novolog) 0 unit SC [facility] PRN Reason: Protocol Last Admin: 01/03/18 07:37 Dose: Not Given Pantoprazole Sodium (Protonix Ec Tab) 40 mg PO DAILY [facility] Last Admin: 01/03/18 09:58 Dose: Not Given Rosuvastatin Calcium (Crestor) 10 mg PO HS [facility] Last Admin: 01/02/18 21:47 Dose: 10 mg Spironolactone (Aldactone) 12.5 mg PO BID [facility] Last Admin: 01/03/18 09:57 Dose: Not Given Thiamine HCl (Vitamin B1 Tab) 100 mg PO DAILY [facility] Last Admin: 01/03/18 10:00 Dose: Not Given Zolpidem Tartrate (Ambien) 5 mg PO HS PRN PRN Reason: Insomnia Last Admin: 01/02/18 00:07 Dose: 5 mg - Labs Labs: 01/01/18 07:23 01/01/18 07:23 PT 12.9 SECONDS (9.7-12.2) H 12/29/17 08:24 INR 1.2 12/29/17 08:24 APTT 33 SECONDS (21-34) 12/29/17 08:24
[2018-01-03] MEDS ORDERED: Propofol 10 mg/ml Inj (20 ML) ONE (13:29)
[2018-01-03] MEDS ORDERED: Midazolam 2 MG/2 ML VIAL ONE (13:29)
[2018-01-03] MEDS ORDERED: Lidocaine Hydrochloride 5 ML INJ ONE (13:31)
--- NOTE | 2018-01-03 18:13 | CP.PCM.PN ---
Subjective - Date & Time of Evaluation Date of Evaluation: 01/03/18 Time of Evaluation: 19:00 - Subjective Subjective: pt seen and examined at bedside Objective - Vital Signs/Intake and Output Vital Signs (last 24 hours): Temp Pulse Resp BP Pulse Ox 97.9 F 67 20 109/73 96 01/03/18 15:06 01/03/18 15:06 01/03/18 15:06 01/03/18 15:06 01/03/18 15:06 Intake and Output: 01/03/18 01/03/18 06:59 18:59 Intake Total 320 150 Balance 320 150 - Medications Medications: Current Medications Acetaminophen (Tylenol 325mg Tab) 650 mg PO Q6 PRN PRN Reason: Headache Last Admin: 01/03/18 04:42 Dose: 650 mg Alprazolam (Xanax) 1 mg PO BID [facility] Last Admin: 01/03/18 17:27 Dose: 1 mg Carvedilol (Coreg) 3.125 mg PO BID [facility] Last Admin: 01/03/18 17:27 Dose: 3.125 mg Enalapril Maleate (Vasotec) 2.5 mg PO DAILY [facility] Last Admin: 01/03/18 10:00 Dose: Not Given Enoxaparin Sodium (Lovenox) 40 mg SC DAILY [facility] Last Admin: 12/31/17 10:48 Dose: 40 mg Insulin Aspart (Novolog) 0 unit SC [facility] PRN Reason: Protocol Last Admin: 01/03/18 17:19 Dose: Not Given Pantoprazole Sodium (Protonix Ec Tab) 40 mg PO DAILY [facility] Last Admin: 01/03/18 09:58 Dose: Not Given Rosuvastatin Calcium (Crestor) 10 mg PO HS [facility] Last Admin: 01/02/18 21:47 Dose: 10 mg Spironolactone (Aldactone) 12.5 mg PO BID [facility] Last Admin: 01/03/18 17:27 Dose: 12.5 mg Sucralfate (Carafate Tab) [address] [facility] Thiamine HCl (Vitamin B1 Tab) 100 mg PO DAILY [facility] Last Admin: 01/03/18 10:00 Dose: Not Given Zolpidem Tartrate (Ambien) 5 mg PO HS PRN PRN Reason: Insomnia Last Admin: 01/02/18 00:07 Dose: 5 mg - Labs Labs: 01/01/18 07:23 01/01/18 07:23 PT 12.9 SECONDS (9.7-12.2) H 12/29/17 08:24 INR 1.2 12/29/17 08:24 APTT 33 SECONDS (21-34) 12/29/17 08:24
--- NOTE | 2018-01-03 19:03 | PN ---
DATE: 01/03/2018 SUBJECTIVE: The patient is complaining of right flank pain. She is n.p.o. for upper endoscopy. She denies any substernal chest pain. No reports of chronic bleeding. PHYSICAL EXAMINATION: VITAL SIGNS: Blood pressure 102/69, heart rate 63, temperature 98.5, respirations 20. HEENT: Normocephalic. CHEST: Clear. HEART: S1 and S2, regular. EXTREMITIES: No edema and no hematoma. ASSESSMENT: 1. Alcoholic liver disease. 2. Left bundle branch block with unremarkable coronary circulation. 3. Hypertension. 4. Diabetes mellitus. 5. History of deep vein thrombosis and pulmonary embolism, status post inferior vena cava filter placement. RECOMMENDATIONS: Subcutaneus Lovenox is currently on hold as well as oral medications for upper endoscopy to be performed this afternoon. I will follow up the patient . Hipolito Manuel MD
[2018-01-04] MEDS: (Novolog) Insulin Aspart, Recombinant 100 u/ml 10 ml vial SC SCH ×2 (08:38→11:48)
--- NOTE | 2018-01-04 09:58 | PN ---
DATE: 01/04/2018 LOCATION: 663, bed A. SUBJECTIVE: This is a 67 years old female post upper endoscopy seen and examined early in rounds today without reported active bleeding, but intermittent periods of nausea with dyspepsia with postprandial abdominal mild distention. No reported active bleeding, chest pain or palpitation. No reported chills or fever this morning. Most recent lab results showed blood glucose level 105. The rest of the lab results for today is still pending and the patient reported to have elevated liver function test before that could be secondary to alcohol intake most likely, cancer markers is still pending. PHYSICAL EXAMINATION: GENERAL: A 67 years old female appeared to be awake, alert, oriented, complaining of abdominal pain. VITAL SIGNS: Pulse of 76, afebrile, blood pressure 108/62, respiratory rate 20-22. HEENT: Showed pale dry oral mucous membrane. Nonicteric sclerae. LUNGS: Few scattered crepitation. Decreased air entry at bases. HEART: Positive S1 and S2. ABDOMEN: Soft with slight generalized tenderness. No mass or organomegaly. No rebound tenderness or guarding. The patient experiences period of nausea during the physical examination as well as left lower quadrant abdominal pain. EXTREMITIES: Without significant clubbing, cyanosis or edema. NEUROLOGIC: No reported new neurological deficits, sensory or motor. No reported new deficits. Peripheral pulses are present bilaterally. IMPRESSION: 1. Reexacerbation of peptic ulcer disease with nonbleeding gastric ulcer, biopsy report is still pending. 2. Past medical history including but not limited to hypertension, depression, diabetes mellitus with severe anxiety syndrome as well as status post cholecystectomy by history. SUGGESTIONS: 1. Agree with your plan. 2. Cancer markers. 3. Endoscopic evaluation of the lower GI tract when the patient is more stable clinically. Further recommendation to follow. Yaniv Tena MD
[2018-01-04] MEDS: Pantoprazole 40 mg EC Tab PO SCH (10:18)
[2018-01-04 12:11] LABS: BASO % 0.7 % (0.0-2.0); EOS # 0.1 K/uL (0.0-0.7); EOS % 2.2 % (0.0-4.0); HEMOGLOBIN 12.8 g/dL (11.0-16.0); LYMPH # 1.9 K/uL (1.0-4.3); LYMPH % 34.9 % (20.0-40.0); MEAN CELL VOLUME 92.9 fL (81.0-99.0); MEAN CORPUSCULAR HGB CONC 33.3 g/dL (33.0-37.0); MEAN PLATELET VOLUME 9.7 fL (7.2-11.7); MONO # 0.7 K/uL (0.0-0.8); MONO % 12.7 % (0.0-10.0); NEUT # 2.7 K/uL (1.8-7.0); NEUT % 49.5 % (50.0-75.0); RBC 4.14 Mil/uL (3.80-5.20); RED CELL DISTRIBUTION WIDTH 14.6 % (11.5-14.5); WHITE BLOOD COUNT 5.4 K/uL (4.8-10.8)
[2018-01-04 12:18] LABS: INR 1.2; PROTHROMBIN TIME 13.3 SECONDS (9.7-12.2)
[2018-01-04 12:35] LABS: ALB/GLOB RATIO 0.8 (1.0-2.1); ALBUMIN 3.8 g/dL (3.5-5.0); ALT/SGPT 56 U/L (9-52); AST/SGOT 96 U/L (14-36); BLOOD UREA NITROGEN 10 mg/dL (7-17); CALCIUM 9.2 mg/dl (8.6-10.4); GFR AFRICAN-AMERICAN > 60; GFR NON-AFRICAN AMERICAN > 60
[2018-01-04 12:59] LABS: HEPATITIS B SURFACE AG Negative (NEGATIVE)
[2018-01-04 13:04] LABS: HEPATITIS A IGM NEGATIVE (NEGATIVE); HEPATITIS B CORE AB NEGATIVE (NEGATIVE)
[2018-01-04 13:16] LABS: HEPATITIS C ANTIBODY NEGATIVE (NEGATIVE)
--- NOTE | 2018-01-04 16:11 | CP.PCM.PN ---
Subjective - Date & Time of Evaluation Date of Evaluation: 01/04/18 Time of Evaluation: 11:45 - Subjective Subjective: Patient seen today, denies any chest pain, sob, groin pain , N/V/D ,abdominal pain improved and tolerating diet s/p EGD- see full report for details s/p cardiac cath - -normal coronaries Objective - Vital Signs/Intake and Output Vital Signs (last 24 hours): Temp Pulse Resp BP Pulse Ox 97.8 F 71 20 97/67 L 97 01/04/18 07:20 01/04/18 07:20 01/04/18 07:20 01/04/18 10:19 01/04/18 07:20 - Medications Medications: Current Medications Acetaminophen (Tylenol 325mg Tab) 650 mg PO Q6 PRN PRN Reason: Headache Last Admin: 01/03/18 04:42 Dose: 650 mg Carvedilol (Coreg) 3.125 mg PO BID [facility] Last Admin: 01/04/18 10:19 Dose: Not Given Enalapril Maleate (Vasotec) 2.5 mg PO DAILY [facility] Last Admin: 01/04/18 10:19 Dose: Not Given Enoxaparin Sodium (Lovenox) 40 mg SC DAILY [facility] Last Admin: 12/31/17 10:48 Dose: 40 mg Insulin Aspart (Novolog) 0 unit SC [facility] PRN Reason: Protocol Last Admin: 01/04/18 11:48 Dose: Not Given Pantoprazole Sodium (Protonix Ec Tab) 40 mg PO DAILY [facility] Last Admin: 01/04/18 10:18 Dose: 40 mg Rosuvastatin Calcium (Crestor) 10 mg PO HS [facility] Last Admin: 01/03/18 21:06 Dose: 10 mg Spironolactone (Aldactone) 12.5 mg PO BID [facility] Last Admin: 01/04/18 10:17 Dose: Not Given Sucralfate (Carafate Tab) 1 gm PO [facility] Last Admin: 01/04/18 08:00 Dose: 1 gm Thiamine HCl (Vitamin B1 Tab) 100 mg PO DAILY [facility] Last Admin: 01/04/18 10:21 Dose: 100 mg Zolpidem Tartrate (Ambien) 5 mg PO HS PRN PRN Reason: Insomnia Last Admin: 01/03/18 21:08 Dose: 5 mg - Labs Labs: 01/04/18 11:56 01/04/18 11:56 PT 13.3 SECONDS (9.7-12.2) H 01/04/18 11:56 INR 1.2 01/04/18 11:56 APTT 34 SECONDS (21-34) 01/04/18 11:56 Assessment and Plan - Assessment and Plan (Free Text) Assessment: 67 year old female, with PMHx of DM and cholecystectomy, admitted for epigastric abdominal pain and abnormal EKG s/p EGD s/p cardiac cath- normal coronaries
[2018-01-04 16:40] VITALS: BP 129/85; PULSE 76; RESP 18; TEMP 97.6; O2SAT 96
--- NOTE | 2018-01-04 20:57 | PN ---
DATE: 01/04/2018 SUBJECTIVE: The patient's abdominal pain has slightly improved and she denies retrosternal chest pain. Upper endoscopy yesterday revealed gastritis, gastric ulcer, duodenitis and a small hiatus hernia. PHYSICAL EXAMINATION: VITAL SIGNS: Blood pressure 97/67, heart rate 71, temperature 97.8, respirations 20. HEENT: Normocephalic. CHEST: Clear. HEART: S1 and S2 regular. ABDOMEN: Soft. EXTREMITIES: No edema or hematoma. LABORATORY DATA: Today's hemoglobin, hematocrit 12.8 and 38.5, white count and platelet count are within normal limit. Today's SMA-7 is within normal limits except for glucose of 120 and creatinine 0.5. AST and ALT are 96 and 56 respectively, which has significantly improved. ASSESSMENT: 1. New onset left bundle-branch block, the patient has normal coronaries_. 2. Alcoholic liver disease. 3. Gastritis and gastric ulcer. RECOMMENDATION: Continue thiamine 100 mg once a day, Lasix 2.5 mg once a day, Crestor 10 mg once a day, Coreg 3.25 mg twice a day. Discontinue subcutaneous Lovenox. The patient can be discharged from the cardiac point. Hipolito Manuel MD MTDD
--- NOTE | 2018-01-05 04:53 | CON ---
DATE: 01/02/[address] Tena to Dr. Cole Shah. I was called for GI consultation by the admitting MD. The patient is seen and fully examined on 01/02/2018 as requested by the admitting medical staff. The entire chart is reviewed including but not limited to most recent lab and radiology study results, current and the previous medication lists, current and the previous medical events, allergy to medication list as well as all the available current and previous medical records. HISTORY OF PRESENT ILLNESS: This is a 67-year-old female who was admitted to the hospital initially through the emergency room due to severe epigastric pain, midabdominal pain, radiates to her back with postprandial abdominal distention, dyspepsia, nausea but no reported active bleeding or significant recent change of bowel movement habit. The patient denied any actual chest pain, palpitation, shortness of breath. PAST MEDICAL HISTORY: Including mainly but not limited not limited to, 1. Hypertension. 2. Peptic ulcer disease. 3. Severe anxiety syndrome. 4. Depression. 5. Diabetes mellitus with possible diabetic gastroparesis. 6. Status post cholecystectomy by history. 7. Initial blood workup post-admission showed increased blood glucose level, but no leukocytosis with subsequent mild drop of hemoglobin and hematocrit. 8. Initial radiology study results showed mildly dilated duodenum with diverticula. FAMILY HISTORY: Unknown. SOCIAL HISTORY: Positive for alcohol intake. There was occasional cigarette smoking before but no substance abuse. MEDICATION LISTS: Post-admission medication lists were reviewed. ALLERGIES TO MEDICATIONS: SEE LIST. PHYSICAL EXAMINATION: GENERAL: A 67-year-old female, awake, alert and oriented, complaining of severe midepigastric and midabdominal line pain. VITAL SIGNS: Afebrile with pulse of 82, respiratory rate 20 to 22 with a blood pressure of 146/82. HEENT: Showed mildly dry, slightly pale oral mucous membranes. Nonicteric sclerae. LYMPH NODES: No lymphadenitis or lymphadenopathy. LUNGS: Few scattered crepitation with mild wheezing bilaterally, related to the patient's known history of bronchial asthma. HEART: Positive S1 and S2. ABDOMEN: Soft. Bowel sounds are present with generalized tenderness mainly in the midepigastric and midabdominal areas as well as left lower quadrant area. No mass or organomegaly. No rebound tenderness or guarding. RECTAL EXAMINATION: The patient refused. EXTREMITIES: With slight lower extremity edematous changes. No clubbing or cyanosis. NEUROLOGIC: No new reported neurological deficits, sensory or motor. No reported new focal deficits. IMPRESSION: 1. Re-exacerbation of peptic ulcer disease, to rule out gastric versus duodenal ulcer. 2. Diverticulosis by radiology study results, apparently the patient never had colonoscopy before according to her statement. 3. Multiple past medical histories as mentioned above including but not limited to hypertension, diabetes mellitus with possible diabetic gastroparesis, severe anxiety syndrome, bronchial asthma with depression. SUGGESTIONS: 1. Agree with your plan. 2. Serum lipase, amylase level. 3. Proton pump inhibitors. 4. IV Reglan. 5. Cancer markers. 6. Adjust oral intake. No seeds, no citrus. 7. Endoscopic evaluation of the GI tract when the patient is more stable clinically and further recommendation to follow. Thank you for letting me to participate in your patient's case management. Yaniv Tena MD
== END 2018-01-04 17:00 | disposition home or self-care (01) | DRG 287 ==
LOC: C.ER 09:50 → C.9E 15:50 → C.6T 16:52 → OBSVTOIN 12-28 17:42
PROVIDERS: ADMIT Internal Medicine; ATTEND Internal Medicine
PROC: 4A023N7 Measurement of Cardiac Sampling and Pressure, Left Heart, Percutaneous Approach (ICD-10-PCS; principal; 2018-01-01)
PROC: B2111ZZ Fluoroscopy of Multiple Coronary Arteries using Low Osmolar Contrast (ICD-10-PCS; 2018-01-01)
PROC: 0DB68ZX Excision of Stomach, Via Natural or Artificial Opening Endoscopic, Diagnostic (ICD-10-PCS; 2018-01-03)
DX: I51.89 Other ill-defined heart diseases (principal); I42.9 Cardiomyopathy, unspecified; I45.2 Bifascicular block; K25.9 Gastric ulcer, unspecified as acute or chronic, without hemorrhage or perforation; F17.210 Nicotine dependence, cigarettes, uncomplicated; I10 Essential (primary) hypertension; J45.909 Unspecified asthma, uncomplicated; K29.70 Gastritis, unspecified, without bleeding; K29.80 Duodenitis without bleeding; K44.9 Diaphragmatic hernia without obstruction or gangrene; K57.30 Diverticulosis of large intestine without perforation or abscess without bleeding; E11.65 Type 2 diabetes mellitus with hyperglycemia; F10.10 Alcohol abuse, uncomplicated; K21.0 Gastro-esophageal reflux disease with esophagitis; K70.9 Alcoholic liver disease, unspecified